=== PATIENT | female | born 1940 | race Caucasian/White ===

== ENCOUNTER → 2020-12-30 | Outpatient (CLI) | payer MEDICARE, BC ==
--- NOTE | 2020-12-30 12:51 | RAD ---
INDICATION: Screening for osteopenia/osteoporosis. Postmenopausal evaluation. COMPARISON: None. TECHNIQUE: Bone densitometry was performed through the lumbar spine and proximal femur. IMPRESSION: Lumbar Spine: BMD: 0.83 T-Score: -2.9 Range: Osteoporotic Proximal Femur: BMD: 0.68 T-Score: -2.3 Range: On the border between osteopenia and osteoporosis World Health Organization Criteria for Bone Density: T-Score: > -1.0: Normal Range < -1.0 to -2.5: Osteopenic Range < -2.5: Osteoporotic Range Electronically signed by: James Beverly MD (12/30/2020 12:49 PM) [id number]
== END ==
LOC: DXRAD 11:45
PROVIDERS: ATTEND Family Medicine
DX: M81.8 Other osteoporosis without current pathological fracture (principal)
CPT/HCPCS: 77080